=== PATIENT | female | born 1955 | race Caucasian/White ===

== ENCOUNTER 2021-08-23 13:03 | Emergency (ER) | payer OTHER ==
--- OUTSIDE RECORDS SUMMARY | 2021-08-23 13:05 | XMS REPORT | Continuity of Care Document ---
:1955 Author Organization [facility] t Address [address] [place] [address] Care Team Providers Name Role Phone PEGGY Attending Clinician Unavailable Khai Attending Clinician Unavailable Khai Admitting Clinician Unavailable Physician, Primary or Family Admitting Clinician Unavailabl e Payers Payer Name Policy Type Policy Number Effective Date Expiration Date Jason [facility] [id number] 2000 00:00:00 Problems This patient has no known problems. Allergies, Adverse Reactions, Alerts Allergy Allergy Status Severity Reaction(s) Onset Inactive Treating Comm ents Source Name Type Date Date Clinician No Known DA Active [facility] No Known DA Active U [facility] [address] [place] [address] Medications This patient has no known medications. Procedures This patient has no known procedures. Encounters Start End Encounter Admission Attending Care Care Encounter Source Date/Time Date/Time Type Type Clinicians Facility Department ID 2021-04-17 Outpatient KAROL ROBERSON [id number] 18:16:26 Andugo gray 2020-09-17 2020-09-17 Outpatient PEGGY [facility] [id number] [place] 00:00:00 00:00:[address] 2020-08-27 2020-08-27 Outpatient JEREMY Haney DONNA [id number] [facility] 12:00:00 12:00:00 [facility] [id number] [facility] 2020-08-26 2020-08-26 Outpatient TISHAMIKE, [facility] [id number] [place] 00:00:00 00:00:00 ANAHY [address] [facility] 2020-08-26 2020-08-26 Outpatient PEGGY, [facility] [id number] [place] 00:00:00 00:00:00 ANAHY [address] [facility] 2019-03-23 2019-03-23 Outpatient BECKY Ridley [facility] [id number] [facility] 12:00:00 12:00:00 Narinder [id number] [facility] Results This patient has no known results.
[2021-08-23] MEDS ORDERED: ONDANSETRON 4 MG/2 ML VIAL ONE (13:20)
[2021-08-23] MEDS ORDERED: KETOROLAC 30 MG/ML INJ ONE (13:20)
[2021-08-23] MEDS ORDERED: NA CHLORIDE 0.9% 1,000 ML ONE (13:21)
[2021-08-23 13:23] LABS: Absolute Lymphocytes (CBC) 1.7 K/uL (0.7-4.9); Lymphocytes % 23.3 % (15.3-44.8); MPV 7.7 fL (7.6-11.3); RBC Red Blood Cell Count 4.11 M/uL (3.86-4.86)
[2021-08-23 13:41] LABS: Albumin 4.1 g/dL (3.4-5.0); Bilirubin Total 0.3 mg/dL (0.2-1.0); Potassium 3.8 mmol/L (3.5-5.1); Protein, Total 7.6 g/dL (6.4-8.2)
[2021-08-23] MEDS ORDERED: MORPHINE 4 MG/ML SYR ONE (13:59)
--- NOTE | 2021-08-23 13:59 | RAD REPORT ---
EXAM DESCRIPTION: CT - Stone Protocol - 08/23/2021 1:36 pm CLINICAL HISTORY: flank pain COMPARISON: No comparisons TECHNIQUE: Axial 3 mm thick images were obtained without oral or IV contrast. The [id number] span s the entirety of the system including uppermost abdomen and lung bases. All CT scans are performed using dose optimization technique as appropriate and may include automated exposure control or mA/KV adjustment according to patient size. FINDINGS: Mild left-sided hydronephrosis is present down to the UVJ. There is a small amount of flui d in stranding in the fatty tissues adjacent to the left collecting system. There is no obstructing c alculus confirmed. There are 2 calcifications in the pelvic floor on the left. These appear to be adj acent to but not within the ureter. There are additional right-sided phleboliths. Patient has a punct ate 2 mm nonobstructing calyx calcification in the upper pole of the left kidney. No right-sided hydr onephrosis or right-sided calculi. No suspicious renal masses. Isodense masses and pyelonephritis are not excluded on a stone protocol CT scan. No significant adrenal finding. Urinary bladder is contrac tristen limiting assessment. No bladder calculi seen. Surgical clips are seen along the liver capsule left lobe midline. No suspicious liver parenchymal le corinne. Gallbladder is absent or tightly contracted. No abnormal biliary tree dilatation. No pancreatic or peripancreatic acute finding. Spleen is unremarkable. Minimal hiatal hernia is present. No stomach or small bowel acute finding. Moderate volume of stool f ills the colon. No acute colon process seen. No hernia, mass or bulky lymphadenopathy noted. No free air or pneumatosis. No other area of strandin g. No significant bony abnormality. IMPRESSION: Mild left-sided hydronephrosis down to the UVJ without obstructing calculus identifiable . Patient has a punctate 2 mm calcification in an upper pole calyx of the left kidney. Recently passed stone can give this presentation due to local mucosal edema near the UVJ. Blood or in flammatory debris within the ureter can also result in obstruction. Isodense masses and pyelonephritis are not excluded on stone protocol technique.
[2021-08-23 14:34] LABS: Urine Blood 2+ (Negative); Urine Glucose Negative (Negative); Urine Protein Negative (Negative); Urine Specific Gravity 1.025 (1.005-1.030); Urine pH 7.5 (5.0-7.0)
--- NOTE | 2021-08-23 14:47 | ER ---
Nurse's Notes [facility] Name: Herminia Li Age: 65 yrs Sex: Female : 1955 Arrival Date: 08/23/2021 Time: 13:04 Bed 2 Private MD: Diagnosis: Other hydronephrosis-left flank pain Presentation: 08/23 13:06 Chief complaint: Patient states: "about an hour ago i started having this pain in my jd3 left side that hit me like a sack of bricks. the pain travels around to the front of my stomach.". Coronavirus screen: At this time, the client does not indicate any symptoms associated with coronavirus-19. Ebola Screen: No symptoms or risks identified at this time. Initial Sepsis Screen: Does the patient meet any 2 criteria? No. Patient's initial sepsis screen is negative. Does the patient have a suspected source of infection? No. Patient's initial sepsis screen is negative. Risk Assessment: Do you want to hurt yourself or someone else? Patient reports no desire to harm self or others. Onset of symptoms was August 23, 2021. 13:06 Method Of Arrival: Wheelchair jd3 13:06 Acuity: GRISELDA 3 jd3 Historical: - Allergies: 13:07 No Known Allergies; jd3 - PSHx: 13:07 Total abdominal hysterectomy; jd3 - Immunization history:: Adult Immunizations up to date, Client reports having NOT received the Covid vaccine. - Social history:: Smoking status: Patient denies any tobacco usage or history of. Screenin:15 Abuse screen: Denies threats or abuse. Nutritional screening: No deficits noted. aa5 Tuberculosis screening: No symptoms or risk factors identified. Fall Risk None identified. Assessment: 13:15 General: Appears uncomfortable, Behavior is cooperative. Pain: Complains of pain in aa5 left flank Pain radiates to left lower quadrant Pain currently is 10 out of 10 on a pain scale. Quality of pain is described as sharp, shooting, Is continuous. Neuro: Level of Consciousness is awake, alert, obeys commands, Oriented to person, place, time, situation. Cardiovascular: Heart tones S1 S2 present Patient's skin is warm and dry. Rhythm is regular. Respiratory: Airway is patent Respiratory effort is even, unlabored, Respiratory pattern is regular, symmetrical. GI: Abdomen is non-distended, Bowel sounds present X 4 quads. Abd is soft and non tender X 4 quads. Reports nausea, vomiting, Patient currently denies diarrhea. : No signs and/or symptoms were reported regarding the genitourinary system. EENT: No signs and/or symptoms were reported regarding the EENT system. Derm: Skin is pink, warm \\T\\ dry. Musculoskeletal: Range of motion: intact in all extremities. 13:53 Reassessment: Patient is alert, oriented x 3, equal unlabored respirations, skin aa5 warm/dry/pink. Pt back from CT scan, Appears uncomfortable, pt states "the pain got better in CT scan but now it's back up again", ASSISTANT CENTER MANAGER notified of pt's pain. . 14:34 Reassessment: Patient is alert, oriented x 3, equal unlabored respirations, skin aa5 warm/dry/pink. Patient states feeling better. Patient states symptoms have improved. Pain: Pain currently is 1 out of 10 on a pain scale. Vital Signs: 13:08 Pulse 72; Resp 18; Temp 97.77; Pulse Ox 100% ; Weight 63.5 kg; Height 5 ft. 8 in. jd3 (172.72 cm); Pain 10/10; 13:15 BP 181 / 92; aa5 14:33 BP 150 / 78; Pulse 79; Pulse Ox 96% on R/A; ap3 15:10 BP 146 / 73; Pulse 77; Resp 14 S; Temp 97.6(TE); Pulse Ox 99% on R/A; Pain 1/10; aa5 13:08 Body Mass Index 21.29 (63.50 kg, 172.72 cm) jd3 ED Course: 13:04 Patient arrived in ED. as 13:07 Triage completed. jd3 13:07 [facility]cd[facility]C [facility] kb 13:08 Micah Hemphill MD is Attending Physician. kb 13:11 Arm band placed on. jd3 13:19 Macie Fulton, [employer] is Primary Nurse. aa5 13:20 Inserted saline lock: 20 gauge in left forearm, using aseptic technique. Blood mb7 collected. 13:21 Bed in low position. Call light in reach. Side rails up X 1. Door closed. Noise mb7 minimized. Warm blanket given. 13:21 CBC with Diff Sent. mb7 13:21 CMP Sent. mb7 13:21 Lipase Sent. mb7 13:38 CT Stone Protocol In Process Unspecified. EDMS 14:47 Alex Morales MD is Referral Physician. kb 15:11 IV discontinued, intact, bleeding controlled, No redness/swelling at site. Pressure zm dressing applied. 15:11 IV dc'd by curriculum development manager. aa5 15:13 No provider procedures requiring assistance completed. aa5 Administered Medications: 13:21 Drug: NS 0.9% 1000 ml Route: IV; Rate: 1 bolus; Site: left wrist; iw 14:33 Follow up: IV Status: Completed infusion aa5 13:21 Drug: Zofran (Ondansetron) 4 mg Route: IVP; Site: left wrist; iw 13:53 Follow up: Response: No adverse reaction aa5 13:21 Drug: Ketorolac 15 mg Route: IVP; Site: left wrist; iw 13:53 Follow up: Response: No adverse reaction aa5 13:56 Drug: morphine 4 mg Route: IVP; Infused Over: 2 mins; Site: left forearm; aa5 14:00 Follow up: Response: No adverse reaction aa5 14:34 Follow up: Response: No adverse reaction; Marked relief of symptoms; Pain is decreased aa5 Outcome: 14:46 Discharge ordered by MD. kb 15:13 Discharged to home ambulatory, with significant other. aa5 15:13 Condition: improved 15:13 Discharge instructions given to patient, Instructed on discharge instructions, follow up and referral plans. medication usage, Demonstrated understanding of instructions, follow-up care, medications, Prescriptions given X 3. 15:13 Patient left the ED. aa5 Signatures: Dispatcher [employer] EDNY Christine Mcdowell, MEGGAN OIL DERRICK OPERATOR-Vicky Liang Irene, RN RN iw Calderon, Audri RN RN aa5 Raghu Santos RN RN jd3 Prokisch, Amanda, RN RN ap3 Breneman, Mary mbViji Arriaga Corrections: (The following items were deleted from the chart) 13:56 13:56 morphine 4 mg IVP in left wrist over 2 mins aa5 aa5
--- NOTE | 2021-08-23 14:47 | EDPHYS ---
Physician Documentation [facility] Name: Herminia Li Age: 65 yrs Sex: Female : 1955 Arrival Date: 08/23/2021 Time: 13:04 Bed 2 Private MD: ED Physician Micah Hemphill HPI: 08/23 16:11 This 65 yrs old Female presents to ER via Wheelchair with complaints of Back Pain, kb Abdominal Pain, Nausea. 16:12 The patient complains of pain in the left flank. The pain does not radiate. Onset: The kb symptoms/episode began/occurred suddenly, just prior to arrival. Modifying factors: The symptoms are alleviated by nothing. the symptoms are aggravated by nothing. Associated signs and symptoms: Pertinent positives: nausea, vomiting. Severity of pain: At its worst the pain was moderate in the emergency department the pain is unchanged. The patient has not experienced similar symptoms in the past. The patient has not recently seen a physician. Historical: - Allergies: 13:07 No Known Allergies; jd3 - PSHx: 13:07 Total abdominal hysterectomy; jd3 - Immunization history:: Adult Immunizations up to date, Client reports having NOT received the Covid vaccine. - Social history:: Smoking status: Patient denies any tobacco usage or history of. ROS: 16:11 Constitutional: Negative for fever, chills, and weight loss. kb 16:11 Abdomen/GI: Positive for nausea and vomiting, Negative for abdominal pain, diarrhea. 16:11 : Positive for flank pain. 16:11 All other systems are negative. Exam: 16:11 Constitutional: This is a well developed, well nourished patient who is awake, alert, kb and in no acute distress. Head/Face: Normocephalic, atraumatic. ENT: Moist Mucous membranes Cardiovascular: Regular rate and rhythm with a normal S1 and S2. No gallops, murmurs, or rubs. No pulse deficits. Respiratory: Respirations even and unlabored. No increased work of breathing. Talking in full sentences Abdomen/GI: Soft, non-tender. No distention Skin: Warm, dry with normal turgor. Normal color. MS/ Extremity: Pulses equal, no cyanosis. Neurovascular intact. Full, normal range of motion. Neuro: Awake and alert, GCS 15, oriented to person, place, time, and situation. Moves all extremities. Normal gait. Psych: Awake, alert, with orientation to person, place and time. Behavior, mood, and affect are within normal limits. 16:11 Back: CVA tenderness, that is mild, is noted on the left. Vital Signs: 13:08 Pulse 72; Resp 18; Temp 97.77; Pulse Ox 100% ; Weight 63.5 kg; Height 5 ft. 8 in. jd3 (172.72 cm); Pain 10/10; 13:15 BP 181 / 92; aa5 14:33 BP 150 / 78; Pulse 79; Pulse Ox 96% on R/A; ap3 15:10 BP 146 / 73; Pulse 77; Resp 14 S; Temp 97.6(TE); Pulse Ox 99% on R/A; Pain 1/10; aa5 13:08 Body Mass Index 21.29 (63.50 kg, 172.72 cm) jd3 MDM: 13:12 Patient medically screened. kb 16:12 Data reviewed: vital signs, nurses notes. Data interpreted: Pulse oximetry: on room air kb is 99 %. Interpretation: normal. Counseling: I had a detailed discussion with the patient and/or guardian regarding: the historical points, exam findings, and any diagnostic results supporting the discharge/admit diagnosis, lab results, radiology results, the need for outpatient follow up, a family practitioner, to return to the emergency department if symptoms worsen or persist or if there are any questions or concerns that arise at home. 08/23 13:11 Order name: CBC with Diff; Complete Time: 13:27 kb 08/23 13:11 Order name: CMP; Complete Time: 13:44 kb 08/23 13:11 Order name: Lipase; Complete Time: 13:44 kb 08/23 13:11 Order name: CT Stone Protocol; Complete Time: 14:00 kb 08/23 14:35 Order name: Urine Dipstick-Ancillary; Complete Time: 14:37 EDMS 08/23 13:11 Order name: IV Saline Lock; Complete Time: 13:21 kb 08/23 13:11 Order name: Labs collected and sent; Complete Time: 13:21 kb 08/23 13:11 Order name: Urine Dipstick-Ancillary (obtain specimen); Complete Time: 14:33 kb Administered Medications: 13:21 Drug: NS 0.9% 1000 ml Route: IV; Rate: 1 bolus; Site: left wrist; iw 14:33 Follow up: IV Status: Completed infusion aa5 13:21 Drug: Zofran (Ondansetron) 4 mg Route: IVP; Site: left wrist; iw 13:53 Follow up: Response: No adverse reaction aa5 13:21 Drug: Ketorolac 15 mg Route: IVP; Site: left wrist; iw 13:53 Follow up: Response: No adverse reaction aa5 13:56 Drug: morphine 4 mg Route: IVP; Infused Over: 2 mins; Site: left forearm; aa5 14:00 Follow up: Response: No adverse reaction aa5 14:34 Follow up: Response: No adverse reaction; Marked relief of symptoms; Pain is decreased aa5 Disposition: 16:18 Co-signature as Attending Physician, Alex Morales MD I agree with the assessment and kdr plan of care. Disposition Summary: 08/23/21 14:46 Discharge Ordered Location: Home kb Condition: Stable kb Diagnosis - Other hydronephrosis - left flank pain kb Followup: kb - With: Emergency Department - When: As needed - Reason: Worsening of condition Followup: kb - With: Private Physician - When: 2 - 3 days - Reason: Recheck today's complaints, Continuance of care, Re-evaluation by your physician Followup: kb - With: Alex Morales MD - When: 2 - 3 days - Reason: Recheck today's complaints Discharge Instructions: - Discharge Summary Sheet kb - Hydronephrosis kb Forms: - Medication Reconciliation Form kb - Thank You Letter kb - Antibiotic Education kb - Prescription Opioid Use kb Prescriptions: - Augmentin 875-125 mg Oral Tablet - take 1 tablet by ORAL route every 12 hours for 10 days; 20 tablet; Refills: 0, kb Product Selection Permitted - Zofran 4 mg Oral Tablet - take 1 tablet by ORAL route every 6 hours As needed; 20 tablet; Refills: 0, kb Product Selection Permitted - Diclofenac Sodium 75 mg Oral tablet,delayed release (DR/EC) - take 1 tablet by ORAL route 2 times per day As needed; 30 tablet; Refills: 0, kb Product Selection Permitted Signatures: Dispatcher [employer] Christine Lin, RUBEN-C RUBEN-Micah Centeno MD MD kdr Williams, Irene, RN RN iw Macie Fulton, RN RN aa5 Raghu Santos, RN RN jd3
[2021-08-23 15:37] VITALS: BP 146/73; TEMP 97.6; O2SAT 99
== END 2021-08-23 15:13 | disposition home or self-care (01) ==
LOC: ER 13:03
DX: N13.39 Other hydronephrosis (principal); R11.2 Nausea with vomiting, unspecified
CPT/HCPCS: 85025; 36415; 81003; 83690; 80053; 76377; 74176; 99284; J7030; J2405